=== PATIENT | male | born 1955 | race Caucasian/White ===

== ENCOUNTER 2017-01-12 09:48 | Day surgery (SDC) | payer BC ==
[~2017-01-12 09:48] MED LIST: Lactated Ringers 1,000 ML IV SCH; Lidocaine 2% 5 ML SDV ONE; Propofol 200 MG/20 ML SDV ONE; fentaNYL 100 MCG/2 ML SDV ONE
--- NOTE | 2017-01-12 11:19 | PCM.PREANE ---
Preanesthetic Assessment - Anesthesia/Transfusion/Family Hx Anesthesia History: Prior Anesthesia Without Reaction Family History of Anesthesia Reaction: No Transfusion History: No Prior Transfusion(s) Intubation History: Unknown - Review of Systems General: No Symptoms Pulmonary: No Symptoms Cardiovascular: No Symptoms Gastrointestinal: Other (colonoscopy 10 years ago) Neurological: No Symptoms Other: Reports: None - Physical Assessment NPO Status Date: 01/11/17 NPO Status Time: 21:00 O2 Sat by Pulse Oximetry: 98 Respiratory Rate: 16 Vital Signs: Last Vital Signs Temp 36.3 C 01/12/17 10:08 Pulse 65 01/12/17 10:08 Resp 16 01/12/17 10:08 BP 164/106 H 01/12/17 10:08 Pulse Ox 98 01/12/17 10:08 Height: 1.83 m Weight: 126.552 kg ASA Class: 2 Mental Status: Alert & Oriented x3 Airway Class: Mallampati = 3 Dentition: Reports: Normal Dentition Thyro-Mental Finger Breadths: 2 Mouth Opening Finger Breadths: 3 ROM/Head Extension: Full Lungs: Clear to Auscultation, Normal Respiratory Effort Cardiovascular: Regular Rate, Regular Rhythm - Allergies Allergies/Adverse Reactions: Allergies Allergy/AdvReac Type Severity Reaction Status Date / Time No Known Allergies Allergy Verified 02/28/14 08:49 - Blood Blood Available: No - Anesthesia Plan Pre-Op Medication Ordered: None - Acknowledgements Anesthesia Type Planned: MAC Pt an Appropriate Candidate for the Planned Anesthesia: Yes Alternatives and Risks of Anesthesia Discussed w Pt/Guardian: Yes Pt/Guardian Understands and Agrees with Anesthesia Plan: Yes PreAnesthesia Questionnaire HEENT History: Reports: None Cardiovascular History: Reports: High Cholesterol, Hypertension, Other (See Below) Other Cardiovascular History: dependent edema Gastrointestinal History: Reports: GERD Genitourinary History: Reports: None Endocrine/Metabolic History: Reports: Obesity/BMI 30+ - Past Surgical History Head Surgeries/Procedures: Reports: None HEENT Surgical History: Reports: Tonsillectomy GI Surgical History: Reports: Colonoscopy, EGD Male Surgical History: Reports: Vasectomy - SUBSTANCE USE Smoking Status *Q: Never Smoker Days Per Week of Alcohol Use: 7 Number of Drinks Per Day: 5 Total Drinks Per Week: 35 Recreational Drug Use History: No - HOME MEDS Home Medications: Home Meds Ascorbic Acid [Vitamin C] 500 mg PO DAILY 01/09/17 [History] Aspirin [[place] Aspirin] 325 mg PO DAILY 01/09/17 [History] Ca/D3/Mag Ox/Zinc/Advisor [employer]/Umang/Bor [Calcium 600-D3 Plus Caplet] 1 tab PO DAILY 01/09 [History] Cholecalciferol (Vitamin D3) [Vitamin D3] 1,000 units PO DAILY 01/09/17 [History ] Furosemide 40 mg PO ASDIRECTED PRN 01/09/17 [History] Losartan/Hydrochlorothiazide [Losartan-HCTZ 100-25 MG] 1 tab PO DAILY 01/09/17 [ History] Multivit-Min/FA/Lycopene/Lut [Centrum Silver Tablet] 1 tab PO DAILY 01/09/17 [ History] [place]-3S/DHA/Epa/Fish Oil [Fish Oil Dr 1,000 mg Softgel] 1,000 mg PO DAILY 01/09 [History] Omeprazole Magnesium [Prilosec Otc] 20 mg PO DAILY 01/09/17 [History] Potassium Chloride 20 meq PO ASDIRECTED 01/09/17 [History] Vitamin B Complex 1 tab PO DAILY 01/09/17 [History] Vitamin E 400 units PO DAILY 01/09/17 [History] amLODIPine [Norvasc] 5 mg PO BEDTIME 01/09/17 [History] atorvaSTATin Calcium [Atorvastatin Calcium] 20 mg PO DAILY 01/09/17 [History] - CURRENT (IN HOUSE) MEDS Current Meds: Current Medications Lactated Ringer's (Ringers, Lactated) 1,000 mls @ 125 mls/hr IV ASDIRECTED [facility] Last Admin: 01/12/17 10:11 Dose: 125 mls/hr Discontinued Medications Fentanyl (Sublimaze) Confirm Administered Dose 100 mcg .ROUTE .STK-MED ONE Stop: 01/12/17 07:21 Lidocaine (Xylocaine-Mpf 2%) Confirm Administered Dose 5 ml .ROUTE .STK-MED ONE Stop: 01/12/17 07:21 Propofol (Diprivan 20 Ml) Confirm Administered Dose 400 mg .ROUTE .STK-MED ONE Stop: 01/12/17 07:21
[2017-01-12] MEDS ORDERED: Lidocaine 2% 5 ML SDV INJECT ONE (12:00)
[2017-01-12] MEDS ORDERED: Propofol 200 MG/20 ML SDV IV ONE (12:00)
[2017-01-12] MEDS ORDERED: Midazolam 1 MG/ML 2 ML SDV IV ONE (12:00)
[2017-01-12] MEDS ORDERED: Lactated Ringers 1,000 ML IV SCH (13:15)
--- NOTE | 2017-01-12 13:17 | PCM.OPNOTE ---
- General Post-Op/Procedure Note Date of Surgery/Procedure: 01/12/17 Operative Procedure(s): Colonoscopy with cold, proximal sigmoid polypectomy and cold distal rectal polypectomy Pre Op Diagnosis: Desire for colorectal cancer screening Post-Op Diagnosis: Sigmoid and rectal polyps. Sigmoid diverticulosis. Chronic internal hemorrhoids. Anesthesia Technique: MAC (ASA II) Primary Surgeon: Pino Obrien Condition: Good Free Text/Narrative:: Dictation [id number] CPT CODE 61257
[2017-01-12 13:43] VITALS: BP 134/72
--- NOTE | 2017-01-12 14:25 | OR ---
SURGEON: Pino Obrien M.D. DATE OF PROCEDURE: 01/12/2017 OPERATION PERFORMED: Colonoscopy with cold proximal sigmoid and rectal polypectomies. ANESTHESIA: MAC. ASA CLASSIFICATION: II. PREOPERATIVE DIAGNOSIS: Desire for colorectal cancer screening. POSTOPERATIVE DIAGNOSES: 1. Sigmoid polyp. 2. Sigmoid diverticulosis. 3. Rectal polyp. DESCRIPTION OF PROCEDURE: The patient was taken to the endoscopy room and positioned on the endoscopy table in the left lateral decubitus position. Time-out was called for appropriate identification of the patient and procedure. Monitored anesthesia care was provided. The colonoscope was inserted into the rectum and advanced with minimal difficulty to the cecum. The colonoscope was retroflexed in the cecum to visualize the ascending colon from below then straightened and slowly withdrawn. The cecum, ascending colon, hepatic flexure, transverse colon, splenic flexure, and descending colon showed no tumors, polyps, diverticula, or angiodysplasia. One polyp was encountered in the proximal sigmoid colon and removed with the cold biopsy forceps. The sigmoid colon demonstrates moderate diverticular change. No stricture, spasm, or bleeding was noted. The colonoscope was withdrawn to the rectum where another polyp was encountered and again removed with the cold biopsy forceps. The colonoscope was then retroflexed in the rectum to visualize the anal orifice from above. No tumors or polyps were seen. The patient does have moderate chronic hemorrhoidal disease. No acute bleeding was noted. The colonoscope was straightened, the rectum aspirated, and the colonoscope removed. The patient tolerated the procedure well and was taken to recovery room in stable condition. MATTHEW / ALEXSANDRA /[id number]
== END 2017-01-12 13:50 | disposition home or self-care (01) ==
LOC: MW.SDS 09:48
PROVIDERS: ATTEND Surgery
PROC: 0DBP8ZZ Excision of Rectum, Via Natural or Artificial Opening Endoscopic (ICD-10-PCS; principal; 2017-01-12)
PROC: 0DBN8ZZ Excision of Sigmoid Colon, Via Natural or Artificial Opening Endoscopic (ICD-10-PCS; 2017-01-12)
DX: Z12.11 Encounter for screening for malignant neoplasm of colon (principal); D12.5 Benign neoplasm of sigmoid colon; D12.8 Benign neoplasm of rectum; K57.30 Diverticulosis of large intestine without perforation or abscess without bleeding; K64.8 Other hemorrhoids; N52.9 Male erectile dysfunction, unspecified; I10 Essential (primary) hypertension; E78.00 Pure hypercholesterolemia, unspecified; E66.9 Obesity, unspecified; K21.9 Gastro-esophageal reflux disease without esophagitis; Z79.82 Long term (current) use of aspirin; Z79.899 Other long term (current) drug therapy; Z98.890 Other specified postprocedural states; Z98.52 Vasectomy status; Z68.37 Body mass index [BMI] 37.0-37.9, adult
CPT/HCPCS: 45380; J2250; J3010; J7120; 00810; 88305; J2704

== ENCOUNTER 2020-03-06 08:04 | Day surgery (SDC) | payer BC ==
[~2020-03-06 08:04] MED LIST changes: -Lidocaine 2% 5 ML SDV ONE; -Propofol 200 MG/20 ML SDV ONE; -fentaNYL 100 MCG/2 ML SDV ONE
[2020-03-06] MEDS ORDERED: fentaNYL 100 MCG/2 ML SDV ONE (08:13)
[2020-03-06] MEDS ORDERED: Midazolam 1 MG/ML 2 ML SDV ONE (08:13)
[2020-03-06] MEDS ORDERED: Propofol 200 MG/20 ML SDV ONE ×2 (08:13→10:33)
--- NOTE | 2020-03-06 08:58 | PCM.PREANE ---
Preanesthetic Assessment - Anesthesia/Transfusion/Family Hx Anesthesia History: Prior Anesthesia Without Reaction Family History of Anesthesia Reaction: No Transfusion History: No Prior Transfusion(s) Intubation History: Unknown - Review of Systems General: No Symptoms Pulmonary: No Symptoms Cardiovascular: No Symptoms Gastrointestinal: No Symptoms Neurological: Pre-Existing Deficit Other: Reports: None - Physical Assessment Height: 6 ft Weight: 121.563 kg ASA Class: 2 Mental Status: Alert & Oriented x3 Airway Class: Mallampati = 2 Dentition: Reports: Normal Dentition Lungs: Clear to Auscultation, Normal Respiratory Effort Cardiovascular: Regular Rate, Regular Rhythm - Allergies Allergies/Adverse Reactions: Allergies Allergy/AdvReac Type Severity Reaction Status Date / Time No Known Allergies Allergy Verified 03/02/20 11:29 - Blood Blood Available: No - Anesthesia Plan Pre-Op Medication Ordered: None - Acknowledgements Anesthesia Type Planned: General Anesthesia (tiva) Pt an Appropriate Candidate for the Planned Anesthesia: Yes Alternatives and Risks of Anesthesia Discussed w Pt/Guardian: Yes Pt/Guardian Understands and Agrees with Anesthesia Plan: Yes Additional Comments: PMH: htn, 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 Psychiatric History: Reports: None Endocrine/Metabolic History: Reports: Obesity/BMI 30+ Hematologic History: Reports: None Immunologic History: Reports: None Oncologic (Cancer) History: Reports: None Dermatologic History: Reports: None - Past Surgical History Head Surgeries/Procedures: Reports: None HEENT Surgical History: Reports: Tonsillectomy GI Surgical History: Reports: Colonoscopy, EGD Male Surgical History: Reports: Vasectomy Other Neurological Surgeries/Procedures: states in November 2019 had neck, nerve and vertabra surgery Other Musculoskeletal Surgeries/Procedures:: states in November of 2019 had neck, nerve and vertabra surgery - SUBSTANCE USE Smoking Status *Q: Never Smoker - HOME MEDS Home Medications: Home Meds Furosemide 40 mg PO ASDIRECTED PRN 01/09/17 [History] Losartan/Hydrochlorothiazide [Losartan-HCTZ 100-25 MG] 1 tab PO DAILY 01/09/17 [History] Multivit-Min/FA/Lycopen/Lutein [Centrum Silver Tablet] 1 tab PO DAILY 01/09/17 [History] Omeprazole Magnesium [Prilosec Otc] 20 mg PO DAILY 01/09/17 [History] Potassium Chloride 20 meq PO ASDIRECTED 01/09/17 [History] amLODIPine [Norvasc] 10 mg PO DAILY 01/09/17 [History] atorvaSTATin Calcium [Atorvastatin Calcium] 20 mg PO DAILY 01/09/17 [History] Aspirin [Adult Aspirin Regimen] 81 mg PO DAILY 03/02/20 [History] - CURRENT (IN HOUSE) MEDS Current Meds: Current Medications Lactated Ringer's (Ringers, Lactated) 1,000 mls @ 125 mls/hr IV ASDIRECTED [place] Discontinued Medications Fentanyl (Sublimaze) Confirm Administered Dose 100 mcg .ROUTE .STK-MED ONE Stop: 03/06/20 08:14 Lidocaine HCl (Xylocaine-Mpf 1%) Confirm Administered Dose 5 ml .ROUTE .STK-MED ONE Stop: 03/06/20 08:14 Midazolam HCl (Versed 1 Mg/Ml) Confirm Administered Dose 2 mg .ROUTE .STK-MED ONE Stop: 03/06/20 08:14 Propofol (Diprivan 20 Ml) Confirm Administered Dose 400 mg .ROUTE .STK-MED ONE Stop: 03/06/20 08:14
[2020-03-06] MEDS ORDERED: fentaNYL 100 MCG/2 ML SDV IVPUSH PRN (10:30)
[2020-03-06] MEDS ORDERED: Atropine 0.1 MG/ML 10 ML Syringe IVPUSH PRN ×2 (10:30)
[2020-03-06] MEDS ORDERED: 50% Dextrose in Water 50 ML Syringe IVPUSH PRN (10:30)
[2020-03-06] MEDS ORDERED: Albuterol 0.083% 2.5 MG/3 ML Neb Soln NEB PRN (10:30)
[2020-03-06] MEDS ORDERED: Naloxone 0.4 MG/ML Syringe IVPUSH PRN (10:30)
[2020-03-06] MEDS ORDERED: EPINEPHrine 1:10,000 1 MG/10 ML Syringe IVPUSH PRN (10:30)
[2020-03-06] MEDS ORDERED: Lactated Ringers 1,000 ML IV SCH (11:00)
--- NOTE | 2020-03-06 11:01 | PCM.OPNOTE ---
- General Post-Op/Procedure Note Date of Surgery/Procedure: 03/06/20 Operative Procedure(s): Colonoscopy with cold, proximal and distal transverse colon polypectomy Pre Op Diagnosis: Personal history of colon polyps Post-Op Diagnosis: Proximal and distal transverse colon polyps. Sigmoid diverticulosis. Anesthesia Technique: MAC (ASA III) Primary Surgeon: Pino Obrien [facility] [facility] Specialist: Zenaida North Condition: Good Free Text/Narrative:: DICTATION [id number] CPT CODE 77722
--- NOTE | 2020-03-06 11:08 | PCM.POSTAN ---
POST ANESTHESIA ASSESSMENT - MENTAL STATUS Mental Status: Alert, Oriented - VITAL SIGNS Vital Signs: Last Vital Signs Temp 97.9 F 03/06/20 09:00 Pulse 65 03/06/20 11:01 Resp 11 L 03/06/20 11:01 BP 121/77 03/06/20 11:01 Pulse Ox 96 03/06/20 11:01 - RESPIRATORY Respiratory Status: Respiratory Rate WNL, Airway Patent, O2 Saturation Stable - CARDIOVASCULAR CV Status: Pulse Rate WNL, Blood Pressure Stable - GASTROINTESTINAL GI Status: No Symptoms - POST OP HYDRATION Hydration Status: Adequate & Stable
--- NOTE | 2020-03-06 11:08 | PCM48HPAN ---
Post Anesthesia Note - EVALUATION WITHIN 48HRS OF ANESTHETIC Vital Signs in Normal Range: Yes Patient Participated in Evaluation: Yes Respiratory Function Stable: Yes Airway Patent: Yes Cardiovascular Function Stable: Yes Hydration Status Stable: Yes Pain Control Satisfactory: Yes Nausea and Vomiting Control Satisfactory: Yes Mental Status Recovered: Yes Vital Signs: Last Vital Signs Temp 97.9 F 03/06/20 09:00 Pulse 65 03/06/20 11:01 Resp 11 L 03/06/20 11:01 BP 121/77 03/06/20 11:01 Pulse Ox 96 03/06/20 11:01
[2020-03-06 11:58] VITALS: BP 137/70; PULSE 66
--- NOTE | 2020-03-06 15:48 | OR ---
SURGEON: Pino Obrien M.D. DATE OF PROCEDURE: 03/06/2020 OPERATION PERFORMED: Colonoscopy with cold transverse colon polypectomy x2. PRIMARY SURGEON: Pino Obrien MD VULCANIZER: assistant manager bilingual: Zenaida North, nurse practitioner student. ANESTHESIA: MAC. ASA CLASSIFICATION: III. PREOPERATIVE DIAGNOSIS: Personal history of colon polyps. POSTOPERATIVE DIAGNOSES: 1. Proximal and distal transverse colon polyps. 2. Sigmoid diverticulosis. DESCRIPTION OF PROCEDURE: The patient was taken to the endoscopy room and positioned on the endoscopy table in the left lateral decubitus position. Time-out was called for appropriate identification of the patient and procedure. Monitored anesthesia care was provided. The colonoscope was inserted into the rectum and advanced with minimal difficulty to the cecum. The cecum was identified by internal landmarks and external pressure. The colonoscope was retroflexed to visualize the ascending colon from below, straightened and slowly withdrawn. The cecum and ascending colon showed no tumors, polyps, diverticula, or angiodysplastic changes. One small polyp was encountered in the proximal transverse colon and a second polyp was encountered in the distal transverse colon. No transverse colon diverticula, angiodysplasia, or inflammatory bowel changes were noted. The descending colon showed no tumors or polyps and no diverticular change. Sigmoid colon demonstrated numerous wide-mouth diverticula. No stricture, spasm, or bleeding was noted. No polyps were encountered. Once the colonoscope was withdrawn to the rectum, it was retroflexed to visualize the anal orifice from above. Again, no tumors or polyps were seen and there were no acute hemorrhoidal changes. The colonoscope was then straightened, the rectum aspirated, and the colonoscope removed. The patient tolerated the procedure well and was taken to recovery room in stable condition. MATTHEW / ALEXSANDRA /[id number]
== END 2020-03-06 11:30 | disposition home or self-care (01) ==
LOC: MW.SDS 08:04
PROVIDERS: ATTEND Surgery
DX: Z12.11 Encounter for screening for malignant neoplasm of colon (principal); D12.3 Benign neoplasm of transverse colon; K57.30 Diverticulosis of large intestine without perforation or abscess without bleeding; I10 Essential (primary) hypertension; E78.00 Pure hypercholesterolemia, unspecified; E66.9 Obesity, unspecified; Z79.899 Other long term (current) drug therapy; Z86.010 Personal history of colon polyps; Z98.890 Other specified postprocedural states; Z68.36 Body mass index [BMI] 36.0-36.9, adult; Z80.0 Family history of malignant neoplasm of digestive organs; Z80.3 Family history of malignant neoplasm of breast
CPT/HCPCS: 45380; J2001; J2250; J2704; J7120; 88305; J3010

== ENCOUNTER 2025-02-14 07:44 | Day surgery (SDC) | payer MEDICARE, BC ==
[2025-02-14] MEDS ORDERED: propofoL 500 MG/50 ML 50 ML ONE (08:18)
[2025-02-14] MEDS: Lactated Ringers 1,000 ML IV SCH (08:23)
[2025-02-14] MEDS ORDERED: Propofol 200 MG/20 ML SDV ONE (08:55)
[2025-02-14] MEDS ORDERED: Lactated Ringers 1,000 ML IV SCH (09:30)
[2025-02-14 11:45] VITALS: BP 114/68; PULSE 69
== END 2025-02-14 09:58 | disposition home or self-care (01) ==
LOC: MW.SDS 07:44
PROVIDERS: ATTEND Surgery
DX: Z12.11 Encounter for screening for malignant neoplasm of colon (principal); D12.0 Benign neoplasm of cecum; D12.3 Benign neoplasm of transverse colon; K63.89 Other specified diseases of intestine; K57.30 Diverticulosis of large intestine without perforation or abscess without bleeding; I10 Essential (primary) hypertension; E78.00 Pure hypercholesterolemia, unspecified; E66.9 Obesity, unspecified; Z79.82 Long term (current) use of aspirin; Z79.899 Other long term (current) drug therapy; Z68.35 Body mass index [BMI] 35.0-35.9, adult; Z86.0100 Personal history of colon polyps, unspecified
CPT/HCPCS: 45380; 88305; J2371; J2704; J7120; 00811